=== PATIENT | female | born 1950 | race Two or more races ===

== ENCOUNTER → 2016-06-10 | Outpatient (CLI) | payer BC ==
[2013-07-10 10:00] VITALS: BP 136/84
[~2016-06-10] MED LIST: ERGO400T2 PO; FLUT1DIS3 IH; LEVO25TA4 PO; LISI-338 PO; METF-620 PO; OMEP20CA9 PO
--- NOTE | 2016-06-10 15:40 | RAD ---
DATE: 06/10/2016 EXAM: DIGITAL SCREEN BILAT W/CAD HISTORY: Routine screening COMPARISON: Baseline study, none available This study was interpreted with the benefit of Computerized Aided Detection (CAD). FINDINGS: There are scattered fibroglandular densities in the breasts. No mass is identified. Benign type calcifications are present on the left. No suspicious microcalcifications are seen. IMPRESSION: There is no mammographic evidence of malignancy in either breast. BI-RADS CATEGORY: 2 BENIGN FINDING(S) RECOMMENDED FOLLOW-UP: 12M 12 MONTH FOLLOW-UP PQRS compliance statement: Patient information was entered into a reminder system with a target due date for the next mammogram. Mammography is a sensitive method for finding small breast cancers, but it does not detect them all and is not a substitute for careful clinical examination. A negative mammogram does not negate a clinically suspicious finding and should not result in delay in biopsying a clinically suspicious abnormality. "Our facility is accredited by the [employer] Mammography Program."
== END | disposition home or self-care (01) ==
LOC: MAMMO 14:21
PROVIDERS: ATTEND Family Medicine
DX: Z12.31 Encounter for screening mammogram for malignant neoplasm of breast (principal)
CPT/HCPCS: G0202; 77067

== ENCOUNTER → 2017-02-28 | Outpatient (CLI) | payer MEDICARE, MEDICAID | END | disposition home or self-care (01) | LOC: RAD 14:26 | DX: M47.896 Other spondylosis, lumbar region (principal); M48.07 Spinal stenosis, lumbosacral region | CPT/HCPCS: 72110 ==

== ENCOUNTER → 2017-03-20 | Outpatient (CLI) | payer MEDICARE | END | disposition home or self-care (01) | LOC: CT 15:29 | DX: J32.4 Chronic pansinusitis (principal) | CPT/HCPCS: 70486 ==

== ENCOUNTER → 2019-09-12 | Outpatient (CLI) | payer OTHER ==
[2013-07-10 10:00] VITALS: BP 136/84
[~2019-09-12] MED LIST changes: +CONTRAST GIVEN. MC PRN; +IOHEXOL 240 MG/ML 50ML VIAL. PO ONE; -METF-620 PO; +METF10007 PO; +OMEP20CA16 PO; -OMEP20CA9 PO
--- NOTE | 2019-09-12 17:36 | RAD ---
EXAM: CT Abdomen and Pelvis without IV contrast INDICATION: Reason: LLQ ABD PAIN / Spl. Instructions: OMNI 240 30 ML / History: TECHNIQUE: Multi-detector row CT images were acquired from the lung bases through the abdomen and pelvis without the use of IV contrast. Sagittal and coronal images were acquired from the transaxial data. All CT scans performed at this facility utilize dose optimization techniques as appropriate to the exam, including the following: Automated exposure control and adjustment of the mA and/or KV according to patient size (this includes techniques or standardized protocols for targeted exams where dose is indication/reason for exam). ORAL CONTRAST: Administered COMPARISON: None FINDINGS: The absence of IV contrast limits evaluation of soft tissue pathology. LOWER CHEST: Unremarkable LIVER: Unremarkable BILIARY SYSTEM: Gallbladder is unremarkable. Bile ducts are not dilated. PANCREAS: Unremarkable SPLEEN: Unremarkable ADRENALS: Unremarkable KIDNEYS & URETERS: Superior pole left 3 cm renal cyst needs no additional imaging follow-up. Nonobstructing 2 mm stone at the inferior pole left kidney. No hydronephrosis or hydroureter in either kidney. No stones in the ureters. BLADDER: Unremarkable REPRODUCTIVE ORGANS: Unremarkable GASTROINTESTINAL: The stomach, small bowel, and colon are notable for colonic diverticuli without findings of acute diverticulitis.. The appendix is normal. MESENTERY/PERITONEUM/RETROPERITONEUM: Unremarkable VASCULAR: Unremarkable LYMPH NODES: No adenopathy OSSEOUS & SOFT TISSUES: Unremarkable IMPRESSION: Diverticulosis without CT findings of acute diverticulitis. No acute abdomen or pelvic pathology otherwise noted with likely incidental nonobstructing inferior pole left renal kidney stone noted. Electronically signed by: Aniceto Gutierrez MD (09/12/2019 5:33 PM) [id number]
== END | disposition home or self-care (01) ==
LOC: CT 14:00
PROVIDERS: ATTEND Nurse Practitioner Gerontology
DX: K57.30 Diverticulosis of large intestine without perforation or abscess without bleeding (principal); N28.1 Cyst of kidney, acquired; N20.0 Calculus of kidney; R10.32 Left lower quadrant pain
CPT/HCPCS: 74176; Q9966

== ENCOUNTER → 2020-03-02 | Outpatient (CLI) | payer OTHER ==
[2013-07-10 10:00] VITALS: BP 136/84
[~2020-03-02] MED LIST changes: -CONTRAST GIVEN. MC PRN; -IOHEXOL 240 MG/ML 50ML VIAL. PO ONE
--- NOTE | 2020-03-02 15:44 | RAD ---
EXAM: Bilateral screening mammogram. HISTORY: 70-year-old female presents for screening mammography. TECHNIQUE: Full-field digital craniocaudal and mediolateral oblique views of both breasts are obtaine d for evaluation. Computer aided detection was applied. COMPARISON: 06/10/2016 BREAST PARENCHYMAL DENSITY: Level B - Scattered fibroglandular densities. FINDINGS: There is no new suspicious mass, microcalcification or region of architectural distortion. IMPRESSION: BI-RADS Category 2: Benign finding(s). RECOMMENDATION: Annual mammography is recommended. If your mammogram demonstrates that you have dense breast tissue, which could hide abnormalities, and if you have other risk factors for breast cancer that have been identified, you might benefit from s upplemental screening tests that may be suggested by your ordering physician. Dense breast tissue, i n and of itself, is a relatively common condition. This information is not provided to cause undue c oncern, but rather to raise your awareness and to promote discussion with your physician regarding th e presence of other risk factors, in addition to dense breast tissue. A report of your mammography re sults will be sent to you and your physician. You should contact your physician if you have any ques tions or concerns regarding this report. Mammography is a sensitive method for finding small breast cancers, but it does not detect them all a nd is not a substitute for careful clinical examination. A negative mammogram does not negate a clin ically suspicious finding and should not result in delay in biopsying a clinically suspicious abnorma lity. PQRS compliance statement - Patient information was entered into a reminder system with a target due date for the next mammogram. "Our facility is accredited by the [employer] Mammography Program." Electronically signed by: Marquita French MD (03/02/2020 3:41 PM) [id number]
== END ==
LOC: MAMMO 14:55
PROVIDERS: ATTEND Nurse Practitioner Gerontology
DX: Z12.31 Encounter for screening mammogram for malignant neoplasm of breast (principal)
CPT/HCPCS: 77067

== ENCOUNTER → 2020-03-18 | Outpatient (CLI) | payer OTHER ==
[2013-07-10 10:00] VITALS: BP 136/84
[~2020-03-18] MED LIST changes: -LISI-338 PO; +LISI-517 PO; +ZOLPIDEM 5 MG TABLET. PO ONE
--- NOTE | 2020-03-19 09:38 | SLEEP ---
DATE OF STUDY: 03/18/2020 SLEEP STUDY REFERRING PHYSICIAN: Dr. Magdiel Hernandez. The patient is 70 years old who weighs 169 pounds with a BMI of 33. The patient's [place] score was 10. The patient underwent diagnostic sleep study performed at [facility]. During the night study, the patient spent 419 minutes in bed and slept for 359 minutes with a sleep efficiency of 86%. Sleep latency was 55 minutes with a REM latency of 118 minutes. Sleep architecture showed normal stage 1 sleep, increased stage 2 sleep, increased slow wave sleep and reduced REM sleep. During the night study, the patient had no obstructive mixed or central apneas. The patient had only 5 hypopneas. The patient's AHI for the entire night was 1 per hour. Supine AHI 1 per hour. EKG monitoring revealed normal sinus rhythm, average heart rate 81 beats per minute, no sustained arrhythmias observed. PLMS were seen at index of 72 per hour and 15 per hour caused EEG arousals. Nocturnal oximetry study revealed a mean oxygen saturation 95% with the lowest of 90%. Due to low AHI, the patient did not meet the split night criteria for CPAP initiation. IMPRESSION: 1. No clinically significant sleep disorder breathing. The patient's AHI for the entire night was 1 per hour. 2. No clinically significant nocturnal hypoxia. 3. Severe PLMS at an index of 72 per hour and 15 per hour caused EEG arousals. RECOMMENDATIONS: 1. The patient did not meet the split night criteria for CPAP initiation due to very low AHI. 2. Weight loss to the ideal body weight is recommended. 3. The patient's PLM did result in EEG arousals at an index of 15 per hour. The patient should be further evaluated for symptoms of restless legs during the day and if present, it can be treated with dopaminergic agonist agents. 4. Avoid [employer] depressants. 5. Cautioned regarding driving until the patient's hypersomnia is resolved. CEZAR REED MD DR: TUAN/cristela JOB#: [id number] / [id number] ANGEL De Jesus APRN, MICHAEL MD
== END ==
LOC: SLPLAB 18:58
PROVIDERS: ATTEND Nurse Practitioner Gerontology
DX: G47.61 Periodic limb movement disorder (principal); G47.33 Obstructive sleep apnea (adult) (pediatric)
CPT/HCPCS: 95810

== ENCOUNTER → 2021-02-01 | Outpatient (CLI) | payer OTHER ==
[2013-07-10 10:00] VITALS: BP 136/84
[~2021-02-01] MED LIST changes: -LISI-517 PO; +LISI5TAB15 PO; -ZOLPIDEM 5 MG TABLET. PO ONE
--- NOTE | 2021-02-01 15:42 | KCIC ---
EXAM: Lumbar spine, 5 views. HISTORY: Pain. COMPARISON: None. FINDINGS: 5 views of the lumbar spine are obtained. There are 6 nonrib-bearing vertebral segments, a normal variant. There is mild scoliosis. There is multilevel endplate remodeling, primarily at L6-S1. There is associated disc space narrowing at this level. There is degenerative subchondral sclerosis and subchondral cyst formation involving the sacroiliac joints. IMPRESSION: 1. Degenerative change involving the lumbar spine, primarily at L6-S1. 2. Mild scoliosis. Electronically signed by: Marquita French MD (02/01/2021 3:39 PM) [id number]
== END ==
LOC: KCIC 15:15
PROVIDERS: ATTEND Family Medicine
DX: M47.817 Spondylosis without myelopathy or radiculopathy, lumbosacral region (principal); M41.86 Other forms of scoliosis, lumbar region; M48.07 Spinal stenosis, lumbosacral region; M46.1 Sacroiliitis, not elsewhere classified
CPT/HCPCS: 72110

== ENCOUNTER → 2021-03-10 | Outpatient (CLI) | payer BC ==
[2013-07-10 10:00] VITALS: BP 136/84
--- NOTE | 2021-03-10 12:34 | KCIC ---
EXAM: Bilateral knees, standing view. HISTORY: Osteoarthritis. COMPARISON: None. FINDINGS: A standing view both knees is obtained. There is mild bilateral medial compartment joint sp madhavi narrowing and spurring. There is right medial compartment chondrocalcinosis. 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 Electronically signed by: Marquita French MD (03/10/2021 12:32 PM) [id number]
== END ==
LOC: KCIC 11:41
PROVIDERS: ATTEND Family Medicine
DX: M17.11 Unilateral primary osteoarthritis, right knee (principal); M17.12 Unilateral primary osteoarthritis, left knee; M11.261 Other chondrocalcinosis, right knee; M76.892 Other specified enthesopathies of left lower limb, excluding foot; M76.891 Other specified enthesopathies of right lower limb, excluding foot
CPT/HCPCS: 73565